=== PATIENT | male | born 1985 | race Asian ===

== ENCOUNTER 2016-10-20 11:17 | Emergency (ER) | payer OTHER ==
[2016-10-20 13:17] LABS: BASOPHIL# 0.1 X10e3 (0-0.3); BASOPHIL% 0.4 % (0-2.5); EOSINOPHIL% 0.2 % (0.0-7.0); HEMATOCRIT 49.7 % (38.0-50.0); LYMPHOCYTE# 1.2 X10e3 (1.0-3.5); LYMPHOCYTE% 8.4 % (17.0-45.0); MEAN CELL VOLUME 84.3 FL (83-96); MEAN CORPUSCULAR HEMOGLOBIN 28.9 PG (28-34); MEAN CORPUSCULAR HGB CONC 34.3 g/dL (30-36); MEAN PLATELET VOLUME 8.9 FL (6.5-11.5); MONOCYTE# 0.5 X10e3 (0-1.0); MONOCYTE% 3.3 % (3.0-12.0); NEUTROPHIL# 12.3 X10e3 (1.5-7.1); NEUTROPHIL% 87.7 % (40-75); PLATELET COUNT 191 X10e3 (140-420); RED BLOOD COUNT 5.89 X10e (3.90-5.60); RED CELL DISTRIBUTION WIDTH 12.8 % (11.0-15.5); WHITE BLOOD COUNT 14.1 X10e3 (4.0-10.5)
[2016-10-20 13:42] LABS: DIFF IND NO
[2016-10-20 13:44] LABS: ALBUMIN SERUM 4.8 g/dL (3.5-5.0); BILIRUBIN,TOTAL 1.9 mg/dL (0.2-2.0); CALCIUM SERUM 9.2 mg/dL (8.4-10.2); GLOM FILT RATE Estimated 100.6 mL/min (>60); POTASSIUM 3.5 mmol/L (3.5-5.1); PROTEIN TOTAL SERUM 8.2 g/dL (6.0-8.3)
== END 2016-10-20 14:37 | disposition home or self-care (01) ==
LOC: CED 11:17 → CFTX 11:17
PROVIDERS: Nurse Practitioner
DX: T78.00XA Anaphylactic reaction due to unspecified food, initial encounter (principal); R74.9 Abnormal serum enzyme level, unspecified
CPT/HCPCS: 36415; 80053; 85025; 96374; 96375; 99283; J1200; J2930